=== PATIENT | female | born 1975 | race Caucasian/White ===

== ENCOUNTER 2021-01-15 13:58 | Observation (INO) | payer SELFPAY ==
[~2021-01-15] VITALS: Ht 162.6 cm; Wt 81.8 kg
[2021-01-15] VITALS (8 sets, daily range): BP systolic 103–139; BP diastolic 54–88; PULSE 82–89; TEMP 97.2–98.5
[2021-01-15 15:10] LABS: BASO % 0.5 % (0.0-2.0); EOS # 0.4 (0.0-0.7); EOS % 4.4 % (0-4.0); GRAN # 6.1 (1.4-6.5); GRAN % 74.3 % (42.2-75.2); LYMPH # 1.2 (1.2-3.4); LYMPH % 14.5 % (20.0-51.0); MEAN CELL VOLUME 70 fl (80.0-100.0); MEAN CORPUSCULAR HGB CONC 27 g/dl (33.0-37.0); MEAN PLATELET VOLUME 9.9 fl (7.4-10.4); MONO # 0.5 (0.1-0.6); MONO % 5.9 % (1.7-9.3); PLATELET COUNT 418 K/mm3 (130-400); RED BLOOD COUNT 3.59 M/mm3 (4.10-5.30); REDCELL DISTRIBUTION WIDTH-CV 19.3 % (11.5-14.5)
[2021-01-15 15:15] LABS: HEMATOCRIT 25.1 % (37.0-47.0); HEMOGLOBIN 6.7 g/dl (12.5-16.0); MEAN CORPUSCULAR HEMOGLOBIN 19 pg (27.0-31.0)
[2021-01-15 15:23] LABS: ALANINE AMINOTRANSFERASE 10 U/L (4-34); ALKALINE PHOSPHATASE 56 U/L (50-136); ANION GAP 8 mmol/L (7-16); AST,SGOT 22 U/L (15-37); BILIRUBIN,TOTAL 0.6 mg/dL (0.0-1.0); BLOOD UREA NITROGEN 6 mg/dL (7-17); CALCIUM 9.3 mg/dL (8.4-10.2); CARBON DIOXIDE 21 mmol/L (22-30); CHLORIDE 104 mmol/L (98-107); CREATININE, serum 0.39 (0.52-1.25); GLUCOSE 227 mg/dL (74-106); POTASSIUM 3.9 mmol/L (3.4-5.0); SODIUM 133 mmol/L (137-145); TOTAL PROTEIN 7.9 gm/dL (6.4-8.2)
[2021-01-15 15:36] LABS: TROPONIN-I < 0.012 ng/mL (0.000-0.035)
[2021-01-15 17:00] LABS: IRON,SERUM 17 ug/dL (35-150)
[2021-01-15 17:24] LABS: TOTAL IRON BINDING CAPACITY 454 ug/dL (265-497)
[2021-01-15] MEDS ORDERED: MELATIN 3 MG-11 TAB PO (18:13)
--- NOTE | 2021-01-15 18:48 | NUR ---
Pt arrived to medical unit room 307 at 1800 from ED. Oriented pt to room, admission assessment and med rec completed. A&Ox4. Heart RRR. Lungs CTA. Reports chest discomfort w/deep breaths. Denies SOA or dizziness. Report given to mini shifter RN. Call light in reach.
[2021-01-15 23:58] LABS: HEMATOCRIT 27.8 % (37.0-47.0); HEMOGLOBIN 7.7 g/dl (12.5-16.0)
[2021-01-16 04:08] VITALS: BP 146/68; PULSE 85; TEMP 98.4
--- NOTE | 2021-01-16 05:09 | NUR ---
1 UNIT PRBC INFUSED WITH NO ADVERSE REACTIONS NOTED OR REPORTED BY PATIENT. HGB 7.7 AFTER TRANSFUSION. PATIENT REPORTS FEELING BETTER AND HAS AMBULATED IN THE HALLS AND IN HER ROOM SEVERAL TIMES THROUGHOUT THE SHIFT. NO REQUESTS OR CONCERNS VERBALIZED BY PATIENT AT THIS TIME.
[2021-01-16 06:46] LABS: BASO % 0.3 % (0.0-2.0); EOS # 0.3 (0.0-0.7); EOS % 4.4 % (0-4.0); GRAN # 4.8 (1.4-6.5); GRAN % 64.1 % (42.2-75.2); LYMPH # 1.9 (1.2-3.4); LYMPH % 24.8 % (20.0-51.0); MEAN CELL VOLUME 72 fl (80.0-100.0); MEAN CORPUSCULAR HGB CONC 28 g/dl (33.0-37.0); MEAN PLATELET VOLUME 10.1 fl (7.4-10.4); MONO # 0.5 (0.1-0.6); MONO % 6.1 % (1.7-9.3); PLATELET COUNT 334 K/mm3 (130-400); RED BLOOD COUNT 3.61 M/mm3 (4.10-5.30); REDCELL DISTRIBUTION WIDTH-CV 19.5 % (11.5-14.5)
[2021-01-16 06:46] LABS: CALCIUM 8.5 mg/dL (8.4-10.2); CREATININE, serum 0.45 (0.52-1.25); POTASSIUM 3.8 mmol/L (3.4-5.0)
[2021-01-16 06:49] LABS: HEMATOCRIT 26.1 % (37.0-47.0); HEMOGLOBIN 7.3 g/dl (12.5-16.0); MEAN CORPUSCULAR HEMOGLOBIN 20 pg (27.0-31.0)
--- NOTE | 2021-01-16 08:30 | NUR ---
Patient sitting up in bed eatting breakfast. A&Ox4. VSS. IV CDI. Reporting pain in left chest, pain medication given as requested. Patient has orders to discharge. Will call for a ride and notfiy nursing staff. No furthr needs expressed from the patient. Call light within reach
[2021-01-16] MEDS ORDERED: FERROUS SU325 MG/TAB PO (09:00)
--- NOTE | 2021-01-16 09:33 | NUR ---
BRIGETTE attended clinical rounds. The patient is ready to d/c today. BRIGETTE then followed up with the patient to discuss discharge plan. The patient lives in [place] with her son, Zina Peck (ph#[phone]). She reports independence with ADLs and does not have any DME. The patient states that she does not have a PCP and she confirms that she is self pay. The patient reports that she would like to apply for Medicaid and disability. BRIGETTE notified Sandra, Financial Counselor. BRIGETTE discussed [facility] in [place] and [facility] for primary care. The patient reports that she would be interested in getting set up at [facility] in [place]. BRIGETTE contacted and secured the patient and appointment at [facility] in [place] on 01/31 at 1400. BRIGETTE notified the unit manager and the patient of the appointment. BRIGETTE faxed the patient's records and d/c orders to [facility]. The patient states that she plans on [facility] and that her son will help pay for them. The patient does not have a DPOA-HC, but she was interested in obtaining a form. BRIGETTE provided. She states that she is not and has two children: Zina and Luis Daniel. The patient plans to return home with her son upon discharge. No additional needs at this time. *Discharge plan: home with son*
--- NOTE | 2021-01-16 09:50 | NUR ---
Initial visit; Patient thanked Transfer Table Operator Helper for offering encouragement and to keep her in Transfer Table Operator Helper's prayers.
--- NOTE | 2021-01-16 11:34 | NUR ---
Discharge paperwork reviewed with the patient. Patient verbalized an understanding to follow doctors orders. Patient waiting on ride home. No further needs expressed from the patient. Call light within reach
--- NOTE | 2021-01-16 12:52 | NUR ---
IV removed, tip intact, gauze and coban covering. Patient waiting on ride home. Call light within reach
[2021-01-16 13:20] VITALS: BP 146/64; PULSE 85; TEMP 98
--- NOTE | 2021-01-16 13:30 | NUR ---
Patient ambulated with nursing staff to ED entrance to ride. Discharge paperwork and personal belongings with the patient. No further needs expressed from the patient.
[2021-01-16 19:08] LABS: HAPTOGLOBIN 144 mg/dL (35-250); TRANSFERRIN 364 mg/dL (180-382)
== END 2021-01-16 13:30 | disposition home or self-care (01) ==
LOC: COL.ER 13:58 → MEDICAL 16:16
PROVIDERS: Physician Assistant; ADMIT Student in an Organized Health Care Education/Training Program
DX: D50.0 Iron deficiency anemia secondary to blood loss (chronic) (principal); R07.89 Other chest pain; Z86.718 Personal history of other venous thrombosis and embolism; Z87.891 Personal history of nicotine dependence; Z79.899 Other long term (current) drug therapy; Z80.0 Family history of malignant neoplasm of digestive organs
CPT/HCPCS: G0378; J7030; P9016

== ENCOUNTER 2021-11-07 06:07 | Emergency (ER) | payer SELFPAY ==
[2021-11-07] VITALS (14 sets, daily range): BP systolic 108–141; BP diastolic 52–93; PULSE 70–84; TEMP 98.1–98.5
[~2021-11-07] VITALS: Ht 162.6 cm; Wt 77.3 kg
[~2021-11-07 06:07] MED LIST: FERROUS SU325 MG/TAB PO; MELATIN 3 MG-11 TAB PO
[2021-11-07 06:45] LABS: BASO % 0.4 % (0.0-2.0); EOS # 0.4 K/mm3 (0.0-0.7); EOS % 4.7 % (0.0-4.0); GRAN # 5.2 K/mm3 (1.4-6.5); LYMPH # 1.6 K/mm3 (1.2-3.4); LYMPH % 20.8 % (20.0-51.0); MEAN CELL VOLUME 66 fl (80.0-100.0); MEAN CORPUSCULAR HGB CONC 25 g/dl (33.0-37.0); MEAN PLATELET VOLUME 9.5 fl (7.4-10.4); MONO # 0.4 K/mm3 (0.1-0.6); MONO % 5.8 % (1.7-9.3); PLATELET COUNT 517 K/mm3 (130-400); RED BLOOD COUNT 2.99 M/mm3 (4.10-5.30); REDCELL DISTRIBUTION WIDTH-CV 20.2 % (11.5-14.5)
[2021-11-07 06:53] LABS: HEMATOCRIT 19.8 % (37.0-47.0); MEAN CORPUSCULAR HEMOGLOBIN 17 pg (27-31)
[2021-11-07 07:00] LABS: ALBUMIN 3.6 gm/dL (3.5-5.0); BILIRUBIN,TOTAL 0.5 mg/dL (0.2-1.2); CALCIUM 9.2 mg/dL (8.4-10.2); CREATININE, serum 0.78 mg/dL (0.57-1.11); POTASSIUM 3.4 mmol/L (3.5-4.5); TOTAL PROTEIN 7.8 gm/dL (6.2-8.1)
== END 2021-11-07 14:15 | disposition home or self-care (01) ==
LOC: COL.ER 06:07
PROVIDERS: Personal Emergency Response Attendant
DX: R05.9 Cough, unspecified (principal)
CPT/HCPCS: J2270; J2405; P9016